=== PATIENT | male | born 1985 | race Caucasian/White ===

== ENCOUNTER 2020-05-10 20:46 | Observation (INO) | payer OTHER, SELFPAY ==
[2020-05-10] MEDS ORDERED: Ondansetron 4 MG/2 ML SDV IVPUSH ONE (21:17)
[2020-05-10] MEDS ORDERED: Sodium Chloride 0.9% 10 ML Syringe FLUSH PRN (21:17)
[2020-05-10] MEDS ORDERED: HYDROmorphone 0.5 MG/0.5 ML Syringe IVPUSH ONE ×2 (21:17→22:25)
--- NOTE | 2020-05-10 22:18 | CT ---
CT facial bones Technique: Multiple axial sections through the facial bones were obtained. Reconstructed coronal and sagittal images were reviewed. Findings: Subcutaneous air seen within the periorbital soft tissues on the left side which extend into the left orbit. Fracture is noted within the left superior orbital rim and superior orbital wall which extends into the frontal sinuses. Fracture is mildly depressed within the anterior left frontal bone as well as superior orbital ridge. Displaced fractures are seen into both sides of the frontal sinuses. Frontal fractures extend intracranially. Fracture is noted within the medial superior right orbit. Comminuted and displaced nasal bone fracture is noted. Nasal septal fracture is also seen. Inferior orbital floors are intact. Mandible shows no fracture. Zygomatic arches are intact. Lateral orbital brasher are intact. Fractures are noted within the medial orbital brasher on both sides with slight displacement. Diffuse soft tissue density within the nasal cavity as well as fluid level within the maxillary sinus as well as mucosal thickening and fluid within the frontal and ethmoid sinuses is felt compatible with blood. Impression: 1. Numerous facial bone fractures involving the left orbit, superior and medial right orbit, nasal bone, nasal septum, anterior left maxillary wall as well as both frontal sinuses. Medial orbital wall fracture is noted on both sides. 2. Subcutaneous air around the left periorbital region. 3. Intracranial air from the frontal sinus fractures which extend intracranially. Diagnostic code #5 This report was dictated in MDT
--- NOTE | 2020-05-10 22:21 | CT ---
Head CT Technique: Multiple axial sections through the brain were obtained. Intravenous contrast was not utilized. Comparison: No previous study. Findings: Numerous facial bone fractures are seen as described on maxillofacial CT. Intracranial air is identified which is from the frontal sinus fractures. No definite intracranial hemorrhage is appreciated. No midline shift or mass-effect is seen. No calvarial fracture is appreciated. Ventricles along with basal cisterns and sulci over the convexities appear within normal limits. Impression: 1. Intracranial air from frontal sinus fractures. 2. Numerous facial bone fractures are seen which were described on maxillofacial CT study. 3. No acute intracranial hemorrhage or other acute intracranial abnormality is appreciated. Diagnostic code #3 This report was dictated in MDT
--- NOTE | 2020-05-10 22:23 | CT ---
CT cervical spine Technique: Multiple axial sections were obtained from above C1 inferiorly to the bottom of T2. Reconstructed sagittal and coronal images were reviewed. Comparison: No prior cervical spine imaging is available. Findings: Vertebral body heights and disc spaces are maintained. Vertebral bodies and posterior arches are intact. No bony central or bony neural foraminal. No abnormal subluxation is appreciated. Impression: 1. Nothing acute is appreciated on CT study of the cervical spine. Diagnostic code #1 This report was dictated in MDT
--- NOTE | 2020-05-10 22:52 | EDM.PDOC ---
ED HPI GENERAL MEDICAL PROBLEM - General Chief Complaint: Head Injury Stated Complaint: HEAD INJURY Time Seen by Provider: 05/10/20 20:56 Source of Information: Reports: Patient, Family History Limitations: Reports: No Limitations - History of Present Illness INITIAL COMMENTS - FREE TEXT/NARRATIVE: The patient presents for a head injury. The patient was at a [employer] game. He was in an inflatable for fun and was supposed to run into another person in an inflatable. The other person was his brother. They hit heads and he fell to the ground. He had no LOC. He had bleeding from his nose. He has swelling to the left side of his face and swelling to both left eyelids. He has neck pain. He has a severe headache. He does admit to drinking today. He has no numbness or weakness. He has no fever, chills, cough, chest pain, shortness of breath, or abdominal pain. He does have nausea and vomiting. He has no medical problems. Onset: Sudden Duration: Minutes: Location: Reports: Head, Face, Neck Quality: Reports: Sharp Severity: Severe Improves with: Reports: None Worsens with: Reports: None Associated Symptoms: Reports: Headaches, Nausea/Vomiting. Denies: Chest Pain, Cough, Fever/Chills, Shortness of Breath Treatments FRONT END TECHNICIAN: Reports: Acetaminophen Head Pain Score (Numeric/FACES): 10 - Related Data Allergies Allergy/AdvReac Type Severity Reaction Status Date / Time No Known Allergies Allergy Verified 05/10/20 21:03 Home Meds: Home Meds . [No Known Home Meds] 05/10/20 [History] Social & Family History - Family History Family Medical History: Noncontributory - Tobacco Use Smoking Status *Q: Current Every Day Smoker Years of Tobacco use: 3 Packs/Tins Daily: 0.5 - Recreational Drug Use Recreational Drug Use: Yes Drug Use in Last 12 Months: Yes Recreational Drug Use Frequency: Weekly ED ROS GENERAL - Review of Systems Review Of Systems: See Below Constitutional: Reports: No Symptoms HEENT: Reports: Eye Pain, Nosebleed, Nose Pain Respiratory: Reports: No Symptoms Cardiovascular: Reports: No Symptoms Endocrine: Reports: No Symptoms GI/Abdominal: Reports: Nausea, Vomiting. Denies: Abdominal Pain Musculoskeletal: Reports: Neck Pain Neurological: Reports: Headache ED EXAM, HEAD INJURY - Physical Exam Exam: See Below Exam Limited By: No Limitations General Appearance: Alert, Mild Distress Head: Other (Edema and pain to the left forehead. Swelling of both upper and lower left eyelids. Pain upon palpation to the nose. Dried blood to both nostrils.) Eyes: Bilateral Eye: EOMI, PERRL Ears: Normal External Exam Nose: Other (Edema and pain with dried blood) Throat/Mouth: Normal Inspection Neck: Tenderness (Moderate mid tenderness) Respiratory: No Respiratory Distress, Lungs Clear, Normal Breath Sounds Cardiovascular: Regular Rate, Rhythm, No Edema, No Murmur GI/Abdominal Exam: Soft, Non-Tender, No Organomegaly, No Mass Back Exam: Normal Inspection Extremities: Normal Inspection Course - Vital Signs Last Recorded V/S: Last Vital Signs Temp 97.7 F 05/10/20 20:55 Pulse 87 05/10/20 20:55 Resp 20 05/10/20 20:55 BP 139/79 05/10/20 20:55 Pulse Ox 99 05/10/20 20:55 - Orders/Labs/Meds Orders: Active Orders 24 hr Category Date Time Status Patient Status [ADT] Routine ADT 05/11/20 00:17 Active Cardiac Monitoring [RC] . DIRECTED Care 05/10/20 21:17 Active Peripheral IV Care [RC] . DIRECTED Care 05/10/20 21:17 Active Sodium Chloride 0.9% [Saline Flush] Med 05/10/20 21:17 Active 10 ml FLUSH ASDIRECTED PRN ED Antiemetic Medication Reflex [OM.PC] Stat Oth 05/10/20 21:17 Ordered Peripheral IV Insertion Adult [OM.PC] Stat Oth 05/10/20 21:17 Ordered Medication Orders Sodium Chloride (Saline Flush) 10 ml FLUSH ASDIRECTED PRN PRN Reason: Keep Vein Open Last Admin: 05/10/20 21:15 Dose: 10 ml Documented by: HERMMIC Labs: Laboratory Tests 05/10/20 05/10/20 Range/Units 21:15 21:15 WBC 12.43 H (4.23-9.07) K/mm3 RBC 5.67 (4.63-6.08) M/mm3 Hgb 16.6 (13.7-17.5) gm/dl Hct 48.6 (40.1-51.0) % MCV 85.7 (79.0-92.2) fl MCH 29.3 (25.7-32.2) pg MCHC 34.2 (32.2-35.5) g/dl RDW Std Deviation 39.8 (35.1-43.9) fL Plt Count 258 (163-337) K/mm3 MPV 9.8 (9.4-12.3) fl Neut % (Auto) 44.9 (34.0-67.9) % Lymph % (Auto) 45.1 (21.8-53.1) % Eaton % (Auto) 5.9 (5.3-12.2) % Eos % (Auto) 3.4 (0.8-7.0) Baso % (Auto) 0.4 (0.1-1.2) % Neut # (Auto) 5.58 H (1.78-5.38) K/mm3 Lymph # (Auto) 5.61 H (1.32-3.57) K/mm3 Eaton # (Auto) 0.73 (0.30-0.82) K/mm3 Eos # (Auto) 0.42 (0.04-0.54) K/mm3 Baso # (Auto) 0.05 (0.01-0.08) K/mm3 Manual Slide Review Abnormal smear Sodium 140 (136-145) mEq/L Potassium 3.2 L (3.5-5.1) mEq/L Chloride 102 (98-107) mEq/L Carbon Dioxide 21 (21-32) mEq/L Anion Gap 20.2 H (5-15) BUN 19 H (7-18) mg/dL Creatinine 1.3 (0.7-1.3) mg/dL Est Cr Clr Drug Dosing 94.79 mL/min Estimated GFR (MDRD) > 60 (>60) mL/min BUN/Creatinine Ratio 14.6 (14-18) Glucose 135 H (74-106) mg/dL Calcium 9.0 (8.5-10.1) mg/dL Total Bilirubin 0.3 (0.2-1.0) mg/dL AST 27 (15-37) U/L ALT 49 (16-63) U/L Alkaline Phosphatase 76 (46-116) U/L Total Protein 7.4 (6.4-8.2) g/dl Albumin 4.4 (3.4-5.0) g/dl Globulin 3.0 gm/dL Albumin/Globulin Ratio 1.5 (1-2) Ethyl Alcohol 0.06 (0.00) gm% Meds: Medications Generic Name Dose Route Start Last Admin Trade Name Lior PRN Reason Stop Dose Admin Sodium Chloride 10 ml 05/10/20 21:17 05/10/20 21:15 Saline Flush FLUSH 10 ml ASDIRECTED PRN Administration Keep Vein Open Discontinued Medications Generic Name Dose Route Start Last Admin Trade Name Lior PRN Reason Stop Dose Admin Hydromorphone HCl 0.25 mg 05/10/20 21:17 05/10/20 21:28 Dilaudid IVPUSH 05/10/20 21:18 0.25 mg ONETIME ONE Administration Hydromorphone HCl 0.5 mg 05/10/20 22:25 05/10/20 22:31 Dilaudid IVPUSH 05/10/20 22:26 0.5 mg ONETIME ONE Administration Hydromorphone HCl 1 mg 05/10/20 23:23 05/10/20 23:29 Dilaudid IVPUSH 05/10/20 23:24 1 mg ONETIME ONE Administration Ceftriaxone Sodium 2 gm/ 100 mls @ 200 mls/hr 05/10/20 23:07 05/10/20 23:29 Sodium Chloride IV 05/10/20 23:36 200 mls/hr ONETIME ONE Administration Ondansetron HCl 4 mg 05/10/20 21:17 05/10/20 21:28 Zofran IVPUSH 05/10/20 21:18 4 mg ONETIME ONE Administration - Re-Assessments/Exams Free Text/Narrative Re-Assessment/Exam: 05/11/20 00:28 I ordered an IV saline lock, dilaudid 0.25mg IV, zofran 4mg IV, CT of his head, maxillofacial bones and cervical spine. I also did labs. His WBC was elevated at 12.43. His K was a little low at 3.2. His anion gap is elevated at 20.2. His ETOH is elevated at 0.06. The CT of his cervical spine shows nothing acute. His head CT shows intracranial air from frontal sinus fractures. Numerous facial bone fractures are seen which were described on maxillofacial CT study. No acute intracranial hemorrhage or other acute intracranial abnormality is appreciated. The CT of his facial bones shows numerous facial bone fractures involving the left orbit, superior and medial right orbit, nasal bone, nasal septum, anterior left maxillary wall as well as both frontal sinuses. Medial orbital wall fracture is noted on both sides. Subcutaneous air around the left periorbital region. Intracranial air from the frontal sinus fractures which extend intracranially. I ordered more pain meds and rocephin 2 grams IV. I called [facility] and talked with Dr Hough the ER doctor and Dr Savage the maxilofacial surgeon. They wanted me to talk to Dr Arias the neurosurgeon. He was able to look at the films and there was nothing surgical needed. He did not recommend antibiotics. The patient was then accepted for transfer to [facility]. Dr Hough called back and said he talked to Dr Carpio the trauma surgeon radio time salesperson and he did not think the patient needed to come there. He recommended something for pain and discharge and follow up with a facial surgeon. The patient is still having pain. I talked with Dr Riley and he agreed to the admission. Departure - Departure Time of Disposition: 00:40 Disposition: Refer to Observation Condition: Fair Clinical Impression: Head injury Qualifiers: Encounter type: initial encounter Qualified Code(s): S09.90XA - Unspecified injury of head, initial encounter Facial bones, closed fracture Qualifiers: Encounter type: initial encounter Facial bone/location: unspecified facial bone Qualified Code(s): S02.92XA - Unspecified fracture of facial bones, initial encounter for closed fracture - Discharge Information Referrals: PCP,Not In Area [Primary Care Provider] - Forms: ED Department Discharge Sepsis Event Note (ED) - Evaluation Sepsis Screening Result: No Definite Risk - Focused Exam Vital Signs: Vital Signs Temp Pulse Resp BP Pulse Ox 05/10/20 20:55 97.7 F 87 20 139/79 99 - My Orders Last 24 Hours: My Active Orders 05/10/20 21:17 Cardiac Monitoring [RC] . DIRECTED Peripheral IV Care [RC] . DIRECTED Sodium Chloride 0.9% [Saline Flush] 10 ml FLUSH ASDIRECTED PRN ED Antiemetic Medication Reflex [OM.PC] Stat Peripheral IV Insertion Adult [OM.PC] Stat 05/11/20 00:17 Patient Status [ADT] Routine - Assessment/Plan Last 24 Hours: My Active Orders 05/10/20 21:17 Cardiac Monitoring [RC] . DIRECTED Peripheral IV Care [RC] . DIRECTED Sodium Chloride 0.9% [Saline Flush] 10 ml FLUSH ASDIRECTED PRN ED Antiemetic Medication Reflex [OM.PC] Stat Peripheral IV Insertion Adult [OM.PC] Stat 05/11/20 00:17 Patient Status [ADT] Routine
[2020-05-10] MEDS ORDERED: cefTRIAXone 2 GM in Sodium Chloride 0.9% 100 ML IV ONE (23:07)
[2020-05-10] MEDS ORDERED: HYDROmorphone 1 MG/ML Syringe IVPUSH ONE (23:23)
[2020-05-11] MEDS ORDERED: Acetaminophen/HYDROcodone 325-5 MG Tab PO PRN (01:01)
[2020-05-11] MEDS: HYDROmorphone 0.5 MG/0.5 ML Syringe IVPUSH PRN ×4 (01:19→08:07)
[2020-05-11] MEDS: Ondansetron 4 MG/2 ML SDV IVPUSH PRN ×2 (01:21→08:07)
[2020-05-11] MEDS: oxyCODONE 5 MG Tab PO PRN ×3 (10:45→20:11)
[2020-05-11] MEDS ORDERED: Scopolamine 1.5 MG Transdermal Patch TRDERM PRN (11:49)
--- NOTE | 2020-05-11 11:58 | PCM.HP.2 ---
H&P History of Present Illness - General Date of Service: 05/11/20 Admit Problem/Dx: Admission Diagnosis/Problem Admission Diagnosis/Problem Trauma to eye Source of Information: Patient, Provider History Limitations: Reports: No Limitations - History of Present Illness Other HPI/Comments: Mr. Steve is a 35 yo man who sustained blunt force trauma to the face during some sort of jousting match at a baseball game last night. CT of the head, face, and cervical spine were performed last night, which shows extensive facial trauma involving the left orbit, left maxilla, frontal sinus, nasal bridge and septum, and right orbit. He also chipped one of the medial incisors and a left molar. Dr. Ramesh spoke with the surgeons conference coordinator in [place], including neurosurgery given finding of pneumocephalus, facial surgeon and trauma surgeon, all of whom felt transfer was not indicated, as the injury involves facial fractures only, and no repair would be done within the first several days of injury. He was admitted for pain control. The patient lives in [place] and is here visiting; his preference would be to travel home as intended this weekend and set up follow up with providers at home. Head Pain Score (Numeric/FACES): 8 - Related Data Allergies/Adverse Reactions: Allergies Allergy/AdvReac Type Severity Reaction Status Date / Time No Known Allergies Allergy Verified 05/11/20 01:41 Home Medications: Home Meds . [No Known Home Meds] 05/10/20 [History] Past Medical History Respiratory History: Reports: Other (See Below) Other Respiratory History: pt thinks he may have sleep apnea Gastrointestinal History: Reports: GERD Musculoskeletal History: Reports: Other (See Below) Other Musculoskeletal History: hx of broke left arm, current facial fractures - Past Surgical History GI Surgical History: Reports: Hernia Repair/Other Social & Family History - Family History Family Medical History: Noncontributory - Tobacco Use Smoking Status *Q: Current Every Day Smoker Years of Tobacco use: 3 Packs/Tins Daily: 0.5 - Caffeine Use Caffeine Use: Reports: None - Recreational Drug Use Recreational Drug Use: No Drug Use in Last 12 Months: Yes Recreational Drug Use Frequency: Weekly H&P Review of Systems - Review of Systems: Review Of Systems: See Below HEENT: Reports: Eye Pain, Headaches, Post Nasal Drip Pulmonary: Reports: No Symptoms Cardiovascular: Reports: No Symptoms Gastrointestinal: Reports: Nausea, Vomiting Genitourinary: Reports: No Symptoms Musculoskeletal: Reports: No Symptoms Skin: Reports: No Symptoms Psychiatric: Reports: No Symptoms Neurological: Reports: No Symptoms Exam - Exam Exam: See Below - Vital Signs Vital Signs: Last Vital Signs Temp 36.5 C 05/10/20 20:55 Pulse 84 05/11/20 05:28 Resp 20 05/11/20 05:28 BP 149/65 H 05/11/20 05:28 Pulse Ox 94 L 05/11/20 05:28 Weight: 115.212 kg - Exam General: Alert, Oriented, Moderate Distress, Other (tearful) HEENT: Other (left eye swollen shut with periorbital ecchymosis) Neck: Supple Lungs: Normal Respiratory Effort Cardiovascular: Regular Rate GI/Abdominal Exam: Soft Extremities: Normal Inspection Skin: Warm, Dry Neuro Extensive - Mental Status: Alert, Oriented x3, Normal Mood/Affect - Patient Data Lab Results Last 24 hrs: Laboratory Results - last 24 hr 05/10/20 05/10/20 Range/Units 21:15 21:15 WBC 12.43 H (4.23-9.07) K/mm3 RBC 5.67 (4.63-6.08) M/mm3 Hgb 16.6 (13.7-17.5) gm/dl Hct 48.6 (40.1-51.0) % MCV 85.7 (79.0-92.2) fl MCH 29.3 (25.7-32.2) pg MCHC 34.2 (32.2-35.5) g/dl RDW Std Deviation 39.8 (35.1-43.9) fL Plt Count 258 (163-337) K/mm3 MPV 9.8 (9.4-12.3) fl Neut % (Auto) 44.9 (34.0-67.9) % Lymph % (Auto) 45.1 (21.8-53.1) % Bell % (Auto) 5.9 (5.3-12.2) % Eos % (Auto) 3.4 (0.8-7.0) Baso % (Auto) 0.4 (0.1-1.2) % Neut # (Auto) 5.58 H (1.78-5.38) K/mm3 Lymph # (Auto) 5.61 H (1.32-3.57) K/mm3 Bell # (Auto) 0.73 (0.30-0.82) K/mm3 Eos # (Auto) 0.42 (0.04-0.54) K/mm3 Baso # (Auto) 0.05 (0.01-0.08) K/mm3 Manual Slide Review Abnormal smear Sodium 140 (136-145) mEq/L Potassium 3.2 L (3.5-5.1) mEq/L Chloride 102 (98-107) mEq/L Carbon Dioxide 21 (21-32) mEq/L Anion Gap 20.2 H (5-15) BUN 19 H (7-18) mg/dL Creatinine 1.3 (0.7-1.3) mg/dL Est Cr Clr Drug Dosing 94.79 mL/min Estimated GFR (MDRD) > 60 (>60) mL/min BUN/Creatinine Ratio 14.6 (14-18) Glucose 135 H (74-106) mg/dL Calcium 9.0 (8.5-10.1) mg/dL Total Bilirubin 0.3 (0.2-1.0) mg/dL AST 27 (15-37) U/L ALT 49 (16-63) U/L Alkaline Phosphatase 76 (46-116) U/L Total Protein 7.4 (6.4-8.2) g/dl Albumin 4.4 (3.4-5.0) g/dl Globulin 3.0 gm/dL Albumin/Globulin Ratio 1.5 (1-2) Ethyl Alcohol 0.06 (0.00) gm% Result Diagrams: 05/10/20 21:15 05/10/20 21:15 Sepsis Event Note - Evaluation Sepsis Screening Result: No Definite Risk - Focused Exam Vital Signs: Vital Signs Pulse Resp BP Pulse Ox 05/11/20 05:28 84 20 149/65 H 94 L 05/11/20 00:53 59 L 20 136/77 91 L Date Exam was Performed: 05/11/20 Time Exam was Performed: 11:51 *Q Meaningful Use (ADM) - VTE Risk Assess *Q Each Risk Factor Represents 1 Point: None Total Score 1 Point Risk Factors: 0 Problem List Initiated/Reviewed/Updated: Yes Orders Last 24hrs: Active Orders 24 hr Category Date Time Status Patient Status [ADT] Routine ADT 05/11/20 00:17 Active Bedrest Bathroom Privileges [RC] ASDIRECTED Care 05/11/20 01:52 Active Cardiac Monitoring [RC] . DIRECTED Care 05/10/20 21:17 Active Communication Order [RC] BID Care 05/11/20 01:53 Active Regular Diet [DIET] Diet 05/11/20 Breakfast Active HYDROmorphone [Dilaudid] Med 05/11/20 01:00 Active 0.5 mg IVPUSH Q2H PRN HYDROmorphone [Dilaudid] Med 05/11/20 11:49 Once 1 mg IVPUSH ONETIME ONE Ondansetron [Zofran] Med 05/11/20 01:00 Active 4 mg IVPUSH Q6H PRN Promethazine [Phenergan] 12.5 mg Med 05/11/20 11:50 Ordered Sodium Chloride 0.9% [Normal Saline] 50 ml IV ONETIME Scopolamine [Transderm-Scop] Med 05/11/20 11:49 Ordered 1.5 mg TRDERM Q72H PRN Sodium Chloride 0.9% [Saline Flush] Med 05/10/20 21:17 Active 10 ml FLUSH ASDIRECTED PRN oxyCODONE Med 05/11/20 07:57 Active 10 mg PO Q4H PRN ED Antiemetic Medication Reflex [OM.PC] Stat Oth 05/10/20 21:17 Ordered Peripheral IV Insertion Adult [OM.PC] Stat Oth 05/10/20 21:17 Ordered Code Status [Resuscitation Status] Routine Resus Stat 05/11/20 01:52 Ordered Medication Orders Hydromorphone HCl (Dilaudid) 0.5 mg IVPUSH Q2H PRN PRN Reason: Pain Last Admin: 05/11/20 08:07 Dose: 0.5 mg Documented by: Admin: 05/11/20 05:20 Dose: 0.5 mg Documented by: Admin: 05/11/20 03:10 Dose: 0.5 mg Documented by: Admin: 05/11/20 01:19 Dose: 0.5 mg Documented by: YASMIN Hydromorphone HCl (Dilaudid) 1 mg IVPUSH ONETIME ONE Stop: 05/11/20 11:50 Promethazine HCl 12.5 mg/ (Sodium Chloride) 50.5 mls @ 100 mls/hr IV ONETIME ONE Stop: 05/11/20 12:20 Ondansetron HCl (Zofran) 4 mg IVPUSH Q6H PRN PRN Reason: Nausea Last Admin: 05/11/20 08:07 Dose: 4 mg Documented by: Admin: 05/11/20 01:21 Dose: 4 mg Documented by: YASMIN Oxycodone HCl (Oxycodone) 10 mg PO Q4H PRN PRN Reason: Pain Last Admin: 05/11/20 10:45 Dose: 10 mg Documented by: KYLE Scopolamine (Transderm-Scop) 1.5 mg TRDERM Q72H PRN PRN Reason: Nausea Sodium Chloride (Saline Flush) 10 ml FLUSH ASDIRECTED PRN PRN Reason: Keep Vein Open Last Admin: 05/10/20 21:15 Dose: 10 ml Documented by: HERMMIC Assessment/Plan Comment:: Isolated blunt facial trauma with fractures of the orbits, frontal bone, left maxilla, and comminuted displaced nasal bone fracture, with chipped teeth. Currently, pain is poorly controlled and the patient reports dizziness and nausea/vomiting. Plan: -oxycodone 10 mg q4h prn -one time 1 mg dilaudid dose IV now -in addition to prn zofran, plan for one time phenergan 12.5 mg IV dose and scopolamine patch. -diet as tolerated. -anticipate discharge once adequate pain regimen is established and patient is tolerating diet. will need follow up with either ENT or OMFS or plastic for facial trauma, as well as dental. - Mortality Measure Prognosis:: Good
[2020-05-11] MEDS: HYDROmorphone 1 MG/ML Syringe IVPUSH ONE ×2 (12:02→12:41)
[2020-05-11] MEDS ORDERED: Promethazine 12.5 MG in Sodium Chloride 0.9% 50 ML IV ONE (12:15)
[2020-05-11] MEDS ORDERED: HYDROmorphone 1 MG/ML Syringe IVPUSH ONE (22:00)
[2020-05-11] MEDS: Ketorolac 30 MG/ML SDV IVPUSH SCH (22:07)
[2020-05-12] MEDS: oxyCODONE 5 MG Tab PO PRN ×3 (01:48→14:21)
[2020-05-12] MEDS: Ketorolac 30 MG/ML SDV IVPUSH SCH ×2 (05:09→10:12)
[2020-05-12] MEDS ORDERED: Aluminum Hydroxide/Magnesium Hydroxide/Simethicone Susp 30 ML Cup PO PRN (08:02)
--- NOTE | 2020-05-12 11:05 | PCM.DCSUM1 ---
Discharge Summary - Hospital Course Free Text/Narrative:: Mr. Steve was admitted from the ER Friday night after sustaining blunt force trauma to the face in some sort of jousting match gone wrong at the [employer] baseball game. He has multiple facial fractures and dental trauma. The on-call trauma team at [facility] was consulted by Dr. Ramesh, including trauma, neurosurgery and face given the findings of significant facial fractures and associated pneumocephalus. They did not recommend any antibiotic prophylaxis with the finding of pneumocephalus, and did not feel that transfer was necessary given isolated facial trauma that they would wait at least a week to intervene on. The patient was therefore admitted here for pain management. His pain and nausea, dizziness were poorly controlled the morning after admission, until the patient was given higher does of pain medication and scopolamine, phenergan and zofran. He felt better at the end of the day and an agreement was maade to plan for discharge today. Today he is feeling better. He is from [place], so he will plan to go home this weekend and set up an appointment with his PCP to arrange for referral to a specialist regarding his fractures. A copy of his CT imaging was put on disc and provided to the patient. Diagnosis: Stroke: No - Discharge Data Discharge Date: 05/12/20 Discharge Disposition: Home, Self-Care 01 Condition: Good - Referral to Home Health Primary Care Physician: PCP Not In Area - Patient Instructions Diet: Mechanical Soft Activity: As Tolerated Showering/Bathing: May Shower Notify Provider of: Fever, Increased Pain, Swelling and Redness, Drainage - Discharge Plan *PRESCRIPTION DRUG MONITORING PROGRAM REVIEWED*: Not Applicable *COPY OF PRESCRIPTION DRUG MONITORING REPORT IN PATIENT ROZ: Not Applicable Prescriptions/Med Rec: Ondansetron [Ondansetron ODT] 4 mg PO Q6H PRN #10 tab.rapdis PRN Reason: Nausea oxyCODONE 5 mg PO Q4H #25 tab Home Medications: Home Meds Ondansetron [Ondansetron ODT] 4 mg PO Q6H PRN #10 tab.rapdis 05/12/20 [Rx] oxyCODONE 5 mg PO Q4H #25 tab 05/12/20 [Rx] Oxygen Therapy Mode: Room Air Patient Handouts: Steps to Quit Smoking Forms: ED Department Discharge Referrals: PCP,Not In Area [Primary Care Provider] - - Discharge Summary/Plan Comment DC Time >30 min.: No - Patient Data Vitals - Most Recent: Last Vital Signs Temp 36.4 C 05/12/20 07:59 Pulse 55 L 05/12/20 07:59 Resp 20 05/12/20 07:59 BP 117/68 05/12/20 07:59 Pulse Ox 98 05/12/20 07:59 Weight - Most Recent: 115.212 kg I&O - Last 24 hours: Intake & Output 05/11/20 05/12/20 05/12/20 22:59 06:59 14:59 Intake Total 280 200 Output Total 1115 Balance -835 200 Med Orders - Current: Current Medications Al Hydroxide/Mg Hydroxide (Mag-Al Plus) 30 ml PO Q4H PRN PRN Reason: Heartburn Last Admin: 05/12/20 08:11 Dose: 30 ml Documented by: Hydromorphone HCl (Dilaudid) 0.5 mg IVPUSH Q2H PRN PRN Reason: Pain Last Admin: 05/11/20 08:07 Dose: 0.5 mg Documented by: Ketorolac Tromethamine (Toradol) 30 mg IVPUSH Q6H NILA Last Admin: 05/12/20 10:12 Dose: 30 mg Documented by: Ondansetron HCl (Zofran) 4 mg IVPUSH Q6H PRN PRN Reason: Nausea Last Admin: 05/11/20 08:07 Dose: 4 mg Documented by: Oxycodone HCl (Oxycodone) 10 mg PO Q4H PRN PRN Reason: Pain Last Admin: 05/12/20 05:43 Dose: 10 mg Documented by: Scopolamine (Transderm-Scop) 1.5 mg TRDERM Q72H PRN PRN Reason: Nausea Last Admin: 05/11/20 12:02 Dose: 1.5 mg Documented by: Sodium Chloride (Saline Flush) 10 ml FLUSH ASDIRECTED PRN PRN Reason: Keep Vein Open Last Admin: 05/10/20 21:15 Dose: 10 ml Documented by: Discontinued Medications Hydrocodone Bitart/Acetaminophen ([place]unt 325-5 Mg) 1 tab PO Q6H PRN PRN Reason: Pain Last Admin: 05/11/20 03:09 Dose: 1 tab Documented by: Hydromorphone HCl (Dilaudid) 0.25 mg IVPUSH ONETIME ONE Stop: 05/10/20 21:18 Last Admin: 05/10/20 21:28 Dose: 0.25 mg Documented by: Hydromorphone HCl (Dilaudid) 0.5 mg IVPUSH ONETIME ONE Stop: 05/10/20 22:26 Last Admin: 05/10/20 22:31 Dose: 0.5 mg Documented by: Hydromorphone HCl (Dilaudid) 1 mg IVPUSH ONETIME ONE Stop: 05/10/20 23:24 Last Admin: 05/10/20 23:29 Dose: 1 mg Documented by: Hydromorphone HCl (Dilaudid) 1 mg IVPUSH ONETIME ONE Stop: 05/11/20 11:50 Last Admin: 05/11/20 12:41 Dose: 1 mg Documented by: Hydromorphone HCl (Dilaudid) 1 mg IVPUSH ONETIME ONE Stop: 05/11/20 22:01 Last Admin: 05/11/20 22:08 Dose: 1 mg Documented by: Ceftriaxone Sodium 2 gm/ (Sodium Chloride) 100 mls @ 200 mls/hr IV ONETIME ONE Stop: 05/10/20 23:36 Last Admin: 05/10/20 23:29 Dose: 200 mls/hr Documented by: Promethazine HCl 12.5 mg/ (Sodium Chloride) 50.5 mls @ 100 mls/hr IV ONETIME ONE Stop: 05/11/20 12:45 Last Admin: 05/11/20 12:01 Dose: 100 mls/hr Documented by: Ondansetron HCl (Zofran) 4 mg IVPUSH ONETIME ONE Stop: 05/10/20 21:18 Last Admin: 05/10/20 21:28 Dose: 4 mg Documented by:
== END 2020-05-12 15:15 | disposition home or self-care (01) ==
LOC: JD.ED 20:46 → JD.MS 05-11 00:34
PROVIDERS: ADMIT Surgery; ATTEND Surgery
DX: S02.40DA Maxillary fracture, left side, initial encounter for closed fracture (principal); S02.85XA Fracture of orbit, unspecified, initial encounter for closed fracture; S02.0XXA Fracture of vault of skull, initial encounter for closed fracture; S02.2XXA Fracture of nasal bones, initial encounter for closed fracture; K03.81 Cracked tooth; F17.210 Nicotine dependence, cigarettes, uncomplicated; W03.XXXA Other fall on same level due to collision with another person, initial encounter; Y93.64 Activity, baseball; Z20.828 Contact with and (suspected) exposure to other viral communicable diseases
CPT/HCPCS: 36415; 70450; 70486; 72125; 80053; 80307; 85025; 87635; 96365; 96367; 96375; 96376; 99285; A9270; G0378; J0696; J1170; J1885; J2405; J2550; J7050; 99284; U0002